=== PATIENT | male | born 1965 | race Caucasian/White ===

== ENCOUNTER → 2017-01-11 | Outpatient (CLI) | payer BC ==
--- NOTE | 2017-01-11 14:03 | REP ---
MRI LEFT SHOULDER WITHOUT CONTRAST: 01/11/2017. Clinical history: Left shoulder lesion, pain. Contusion from cortisone shot. Technique: Sagittal fat suppressed T2 with axial T2 MEDIC and fat suppressed T2 sequences with coronal T1 and fat suppressed T2 sequences provided. Findings: I have no prior study. AC joint shows hypertrophic changes superiorly and inferiorly from the clavicle abutting the musculotendinous junction. Rotator cuff peripheral acromial spur is also seen. There is subdeltoid bursal fluid without subacromial bursal fluid, this suggest synovitis. There is a partial tear along the undersurface of the supraspinatus tendon. There is a full-thickness component anteriorly best seen on the coronal image 14 of series of the T2 fat suppressed sequence. There is tendinopathy tendinosis and also abnormal increased signal at the insertional footprint anteriorly and posteriorly of the supraspinatus. Subscapularis tendon and grossly intact. The infraspinatus and teres minor tendon intact. Those muscles all intact. No atrophy of the supraspinatus muscle. No definite labral tear or significant glenohumeral joint effusion. No definite loose body. The biceps tendon appears seated in its groove. Biceps labral complex grossly intact. The spinal glenoid notch is without fluid collection or mass. Both the coracoclavicular and coracohumeral ligaments grossly intact. Impression: 1. AC joint spurring with tendinopathy and impingement musculotendinous junction rotator cuff and peripheral acromial spur with significant tendinosis tendinopathy and partial tear of full-thickness of the supraspinatus tendon near its insertional footprint. The subdeltoid bursal fluid is felt related to rotator cuff tear, less likely residual from injection 2 weeks ago. 2. Subscapularis tendinopathy without tear of the infraspinatus and teres minor tendons are intact. All muscles about the shoulder were grossly intact. 3. No glenohumeral joint effusion or loose body. No definite labral tear in the biceps tendon, biceps labral complex and the coracoclavicular/coracohumeral ligaments intact. Signed by Bryan Luna MD 01/11/2017 03:43 P
== END ==
LOC: M RAD 09:40
PROVIDERS: ATTEND Internal Medicine
DX: M75.82 Other shoulder lesions, left shoulder (principal)

== ENCOUNTER → 2023-04-24 | Outpatient (CLI) | payer MEDICARE | LOC: M SLEEP 20:00 | PROVIDERS: ATTEND Nurse Practitioner Family | DX: G47.31 Primary central sleep apnea (principal) ==

== ENCOUNTER → 2024-03-26 | Outpatient (REF) | payer MEDICARE, OTHER ==
[2024-03-27 16:21] LABS: CREATININE, URINE 41.6 MG/DL; MALB URINE SIEMENS < 3.0 MG/L; MAU/CREAT RATIO 7.2 MCG/MG (0.0-30.0)
== END ==
LOC: M LAB REF 03-27 14:54
PROVIDERS: ATTEND Nurse Practitioner Family
DX: E11.65 Type 2 diabetes mellitus with hyperglycemia (principal)

== ENCOUNTER → 2024-08-25 | Outpatient (REF) | payer OTHER | LOC: M LAB REF 16:39 | PROVIDERS: ATTEND Podiatrist | DX: L03.031 Cellulitis of right toe (principal) ==

== ENCOUNTER → 2024-09-10 | Outpatient (CLI) | payer OTHER | LOC: M SLEEP 20:00 | PROVIDERS: ATTEND Nurse Practitioner Family | DX: G47.33 Obstructive sleep apnea (adult) (pediatric) (principal) ==